=== PATIENT | male | born 1950 | race African-American/Black ===

== ENCOUNTER → 2016-11-25 | Outpatient (CLI) | payer MEDICARE | LOC: RAD 10:31 | PROVIDERS: ATTEND Internal Medicine | DX: D73.81 Neutropenic splenomegaly (principal); R16.2 Hepatomegaly with splenomegaly, not elsewhere classified; Q61.02 Congenital multiple renal cysts; Z94.0 Kidney transplant status | CPT/HCPCS: 76700 ==

== ENCOUNTER → 2016-12-17 | Outpatient (CLI) | payer MEDICARE ==
[2016-12-17 11:17] LABS: POTASSIUM 3.9 mmol/L (3.6-5.0)
[2016-12-17 11:18] LABS: ANION GAP 15 (5-19); BLOOD UREA NITROGEN 41 mg/dL (7-20); CALCIUM 9.7 mg/dL (8.4-10.2); CARBON DIOXIDE 25 mmol/L (22-30); CHLORIDE 105 mmol/L (98-107); GLUCOSE 103 mg/dL (75-110); SODIUM 144.8 mmol/L (137-145)
== END ==
LOC: OD 10:13
PROVIDERS: ATTEND Internal Medicine Nephrology
DX: Z94.0 Kidney transplant status (principal)
CPT/HCPCS: 36415; 80048; 80197

== ENCOUNTER → 2017-02-13 | Outpatient (CLI) | payer MEDICARE ==
[2017-02-13 13:13] LABS: ANION GAP 11 (5-19); BLOOD UREA NITROGEN 36 mg/dL (7-20); CALCIUM 9.3 mg/dL (8.4-10.2); CARBON DIOXIDE 24 mmol/L (22-30); CHLORIDE 106 mmol/L (98-107); CREATININE RESULT 2.26 mg/dL (0.52-1.25); GLUCOSE 72 mg/dL (75-110); POTASSIUM 4.1 mmol/L (3.6-5.0); SODIUM 140.7 mmol/L (137-145)
== END ==
LOC: OD 11:21
PROVIDERS: ATTEND Internal Medicine
DX: Z94.0 Kidney transplant status (principal)
CPT/HCPCS: 36415; 80048; 80197

== ENCOUNTER 2017-05-20 15:57 | Emergency (ER) | payer MEDICARE ==
--- NOTE | 2017-05-20 17:49 | ER Document Report ---
ED Medical Screen (RME) - General Chief Complaint: Fever Stated Complaint: FEVER Time Seen by Provider: 05/20/17 17:47 Mode of Arrival: Ambulatory Information source: Patient Notes: Patient has a history of prostate cancer as well as a renal transplant. Patient was at his doctor's office today for a routine visit to check his INR. At that time the doctor noticed that his temperature is 99 and was concerned and referred him to the emergency department. Patient states he is felt weak the last couple of days but has not felt that he has had a fever. No vomiting or diarrhea. No significant new cough cold or congestion. TRAVEL OUTSIDE OF THE [place] IN LAST 30 DAYS: No - Related Data Allergies/Adverse Reactions: No Known Allergies Allergy (Verified 05/20/17 16:16) Past Medical History - Social History Chew tobacco use (# tins/day): No Frequency of alcohol use: None Drug Abuse: None - Past Medical History Cardiac Medical History: Reports: Hx Hypertension Denies: Hx Heart Attack Pulmonary Medical History: Denies: Hx Asthma, Hx Bronchitis, Hx COPD, Hx Pneumonia Neurological Medical History: Denies: Hx Cerebrovascular Accident, Hx Seizures Renal/ Medical History: Denies: Hx Peritoneal Dialysis Musculoskeltal Medical History: Reports Hx Arthritis - right elbow, left hand Past Surgical History: Reports: Hx Vascular Surgery - fistula - Immunizations Hx Diphtheria, Pertussis, Tetanus Vaccination: Yes - 08/25/11 Physical Exam - Vital signs Vitals: Temp Pulse Resp BP Pulse Ox 99.5 F 95 16 119/89 H 99 05/20/17 16:16 05/20/17 16:16 05/20/17 16:16 05/20/17 16:16 05/20/17 16:16 Course - Vital Signs Vital signs: Temp Pulse Resp BP Pulse Ox 98.3 F 76 16 126/90 H 98 05/20/17 17:45 05/20/17 17:45 05/20/17 17:45 05/20/17 17:45 05/20/17 17:45
[2017-05-20 19:10] LABS: ABSOLUTE LYMPHOCYTES (AUTO) 0.4 10^3/uL (0.5-4.7); ABSOLUTE MONOCYTES (AUTO) 0.5 10^3/uL (0.1-1.4); BASOPHILS % (AUTO) 0.3 % (0-2); EOSINOPHILS % (AUTO) 0.1 % (0-6); HEMATOCRIT 30.7 % (37.9-51.0); HEMOGLOBIN 11.5 g/dL (13.5-17.0); HGB HCT DIFFERENCE 3.8; MEAN CORPUSCULAR HEMOGLOBIN 34.6 pg (27.0-33.4); MEAN CORPUSCULAR HGB CONC 37.6 g/dL (32.0-36.0); MEAN CORPUSCULAR VOLUME 92 fl (80-97); MONOCYTES % (AUTO) 6.8 % (3-13); RED BLOOD COUNT 3.32 10^6/uL (4.35-5.55); RED CELL DISTRIBUTION WIDTH 13.7 % (11.5-14.0); SEGMENTED NEUTROPHILS % (AUTO) 87.8 % (42-78)
[2017-05-20 19:12] LABS: PROTHROMBIN TIME 15.6 SEC (11.4-15.4)
[2017-05-20 19:21] LABS: ALANINE AMINOTRANSFERASE 33 U/L (21-72); ALBUMIN 3.8 g/dL (3.5-5.0); ALKALINE PHOSPHATASE 58 U/L (38-126); ANION GAP 11 (5-19); ASPARTATE AMINO TRANSFERASE 22 U/L (17-59); BILIRUBIN,DIRECT 0.7 mg/dL (0.0-0.4); BILIRUBIN,TOTAL 1.2 mg/dL (0.2-1.3); BLOOD UREA NITROGEN 61 mg/dL (7-20); CALCIUM 9.2 mg/dL (8.4-10.2); CARBON DIOXIDE 22 mmol/L (22-30); CHLORIDE 100 mmol/L (98-107); CREATININE RESULT 2.32 mg/dL (0.52-1.25); GLUCOSE 116 mg/dL (75-110); POTASSIUM 4.2 mmol/L (3.6-5.0); SODIUM 133.4 mmol/L (137-145); TOTAL PROTEIN 7.6 g/dL (6.3-8.2)
--- NOTE | 2017-05-20 19:49 | RADIOLOGY REPORT (SQ) ---
EXAM DESCRIPTION: CHEST PA/LAT COMPLETED DATE/TIME: 05/20/2017 7:07 pm REASON FOR STUDY: hx cancer/weak/fever COMPARISON: July 2010 EXAM PARAMETERS: NUMBER OF VIEWS: two views TECHNIQUE: Digital Frontal and Lateral radiographic views of the chest acquired. RADIATION DOSE: NA LIMITATIONS: none FINDINGS: LUNGS AND PLEURA: No opacities, masses or pneumothorax. No pleural effusion. MEDIASTINUM AND HILAR STRUCTURES: No masses or contour abnormalities. HEART AND VASCULAR STRUCTURES: Cardiac silhouette remains mildly enlarged. BONES: No acute findings. HARDWARE: None in the chest. OTHER: No other significant finding. IMPRESSION: No significant interval change. No acute findings. Other findings as noted above TECHNICAL DOCUMENTATION: JOB ID: [id number] [employer]- All Rights Reserved
--- NOTE | 2017-05-20 20:14 | ER Document Report ---
ED General - General Chief Complaint: Fever Stated Complaint: FEVER Time Seen by Provider: 05/20/17 17:47 Mode of Arrival: Ambulatory Information source: Patient Notes: This is a 67-year-old man with a history of atrial fibrillation (Coumadin), renal transplant (on prednisone and Prograf), recent work-up for possible pancreatic cancer(s/p bx via endoscopy last week), peripheral vascular disease ( right midfoot amputation, left lower extremity bypass). The patient was referred to the emergency room by his bilingual research interviewer (Dr. Gurrola) because of fever and "not looking good". The patient was at the bilingual research interviewer for a regular visit (followed for anticoagulation) but does state he has been tired and sluggish for the past week. He denies any chest pain or shortness of breath , he states he has had intermittent abdominal pain. He denies N/V/D or dysuria. TRAVEL OUTSIDE OF THE [place] IN LAST 30 DAYS: No - HPI Onset: Just prior to arrival Onset/Duration: Gradual Quality of pain: Other - He states he has had intermittent abdominal pain Severity: Mild Pain Level: 1 Associated symptoms: Chills, Fever. denies: Shortness of breath Exacerbated by: Denies Relieved by: Denies Similar symptoms previously: Yes Recently seen / treated by doctor: Yes - Related Data Allergies/Adverse Reactions: No Known Allergies Allergy (Verified 05/20/17 16:16) Past Medical History - General Information source: Patient - Social History Smoking Status: Former Smoker Cigarette use (# per day): No Chew tobacco use (# tins/day): No Frequency of alcohol use: None Drug Abuse: None Lives with: Spouse/Significant other Family History: Reviewed & Not Pertinent Patient has suicidal ideation: No Patient has homicidal ideation: No - Past Medical History Cardiac Medical History: Reports: Hx Hypertension Denies: Hx Heart Attack Pulmonary Medical History: Denies: Hx Asthma, Hx Bronchitis, Hx COPD, Hx Pneumonia Neurological Medical History: Denies: Hx Cerebrovascular Accident, Hx Seizures Renal/ Medical History: Denies: Hx Peritoneal Dialysis Musculoskeltal Medical History: Reports Hx Arthritis - right elbow, left hand Past Surgical History: Reports: Hx Vascular Surgery - fistula, Other - Recent ERCP with pancreatic biopsy (last week) - Immunizations Hx Diphtheria, Pertussis, Tetanus Vaccination: Yes - 08/25/11 Hx Pneumococcal Vaccination: 08/25/11 Review of Systems - Review of Systems Constitutional: Chills, Fever EENT: No symptoms reported Cardiovascular: No symptoms reported Respiratory: No symptoms reported Gastrointestinal: See HPI Genitourinary: No symptoms reported Male Genitourinary: No symptoms reported Musculoskeletal: No symptoms reported Skin: No symptoms reported Hematologic/Lymphatic: No symptoms reported Neurological/Psychological: Weakness Physical Exam - Vital signs Vitals: Temp Pulse Resp BP Pulse Ox 99.5 F 95 16 119/89 H 99 05/20/17 16:16 05/20/17 16:16 05/20/17 16:16 05/20/17 16:16 05/20/17 16:16 Notes: Physical exam: GENERAL: 67-year-old man, alert and oriented 3, no acute distress HEAD: Atraumatic, normocephalic. EYES: Pupils equal round and reactive to light, extraocular movements intact, sclera anicteric, conjunctiva are normal. ENT: TMs normal, nares patent, oropharynx clear without exudates. Moist mucous membranes. NECK: Normal range of motion, supple without obvious mass or JVD. LUNGS: Breath sounds clear to auscultation bilaterally and equal. No wheezes rales or rhonchi. HEART: Regular rate and rhythm without murmurs, rubs or gallops. ABDOMEN: Soft, normoactive bowel sounds. He does have ecchymoses to the left lower quadrant which is where his been getting Lovenox shots. He has no tenderness over the right lower quadrant which is where his renal transplant lies. Perineum: Skin clear EXTREMITIES: Normal range of motion, no pitting or edema. No clubbing or cyanosis. NEUROLOGICAL: Cranial nerves II through XII grossly intact. Normal speech, moving all extremities. PSYCH: Normal mood, normal affect. SKIN: Warm, Dry, normal turgor, no rashes or lesions noted. Course - Re-evaluation Re-evalutation: 05/21/17 02:10 This is a 67-year-old man with a history of a renal transplant, on immunosuppressants, presenting with generalized weakness, fatigue and low-grade fever. Patient is found to have atrial fibrillation with a rapid ventricular rate (in the 130 range). He does have a history of atrial fibrillation for which she receives chronic anticoagulation. He does have a history of a recent ERCP with pancreatic biopsy for a pancreatic mass (biopsy results pending). The patient's white count today is 8K and records indicate that his baseline white count is approximately 4K. He does have an left shift with approximately 90% neutrophils. CT of the abdomen shows significant inflammation in the mid abdomen fat associated with the pancreas. The patient has been treated with IV fluids, IV antibiotics (ceftriaxone) and he has been started on an IV Diltiazem drip to control his rate. I have discussed the case with Dr. Kirby who is the hospitalist at this hospital and he has recommended transfer to [facility] because of lack of GI services, transplant services, etc. I have discussed the case with Dr. Holman at [facility] surgery who recommended transferring to the hospitalist service with the surgical subspecialties in consultation. 05/21/17 02:[address] Martinez of the Hospitalist service at [facility] who has accepted patient in transfer. 05/21/17 02:42 Currently the patient's heart rate is approximately 110. We are titrating the dill trip to 7 mg an hour. The patient continues to receive fluids at 200 and hour. He does have a Gooden and is draining urine. I am switching the antibiotic to renal dose of Zosyn (better abdominal coverage). - Vital Signs Vital signs: Temp Pulse Resp BP Pulse Ox 98.4 F 76 18 147/98 H 97 05/21/17 00:50 05/20/17 17:45 05/21/17 02:01 05/21/17 02:01 05/21/17 02:01 - Laboratory Result Diagrams: 05/20/17 18:45 05/20/17 18:45 Laboratory results interpreted by me: 05/20/17 05/20/17 05/20/17 18:45 18:45 18:45 RBC 3.32 L Hgb 11.5 L Hct 30.7 L MCH 34.6 H MCHC 37.6 H Plt Count 137 L Seg Neutrophils % 87.8 H Lymphocytes % 5.0 L Absolute Lymphocytes 0.4 L PT 15.6 H VBG pH Sodium 133.4 L BUN 61 H Creatinine 2.32 H Est GFR ( Amer) 34 L Est GFR (Non-Af Amer) 28 L Glucose 116 H Magnesium Direct Bilirubin 0.7 H Urine Protein Urine Ketones Urine Blood 05/20/17 05/20/1717 18:45 20:08 23:02 RBC Hgb Hct MCH MCHC Plt Count Seg Neutrophils % Lymphocytes % Absolute Lymphocytes PT VBG pH 7.29 L Sodium BUN Creatinine Est GFR ( Amer) Est GFR (Non-Af Amer) Glucose Magnesium 3.0 H Direct Bilirubin Urine Protein 30 H Urine Ketones TRACE H Urine Blood SMALL H - Diagnostic Test Radiology reviewed: Image reviewed, Reports reviewed - CT of the abdomen shows a 3.1 cm ovoid mass associated with the pancreatic body with severe extensive inflammation of the mid abdominal fat associated with the pancreas. I have reviewed the CT report and discussed the findings with Dr. Nava of radiology. - EKG Interpretation by Me Rate: Tachycardia Rhythm: A.Fib - EKG shows Critical Care Note - Critical Care Note Total time excluding time spent on procedures (mins): 120 Discharge - Discharge Clinical Impression: Fever, Atrial fibrillation with rapid ventricul, Pancreatitis Condition: Serious Disposition: [facility] Referrals: CANDELARIO AMADO MD [Primary Care Provider] - Follow up as needed
[2017-05-20 20:33] LABS: VENOUS BLOOD BASE EXCESS -4.3 mmol/L; VENOUS BLOOD HCO3 22.5 mmol/L (20-32); VENOUS BLOOD PCO2 47.8 mmHg (35-63); VENOUS BLOOD PH 7.29 (7.30-7.42)
[2017-05-20] MEDS: NORMAL SALINE 500 ML IV PRN ×2 (21:14→21:40)
--- NOTE | 2017-05-20 21:15 | EKG REPORT ---
SEVERITY:- ABNORMAL ECG - ATRIAL FIBRILLATION, V-RATE 77-181 LEFT ANTERIOR FASCICULAR BLOCK CONSIDER ANTEROSEPTAL INFARCT REPOL ABNRM SUGGESTS ISCHEMIA, LATERAL LEADS BORDERLINE PROLONGED QT INTERVAL : Confirmed by: Miesha Patel MD 20-May-2017 21:15:01
[2017-05-20] MEDS ORDERED: NORMAL SALINE 1000 ML 1,000 ML IV PRN (21:47)
[2017-05-20] MEDS ORDERED: DILTIAZEM HCL INJ 25 MG/5 ML VIAL IV ONE (23:04)
[2017-05-20 23:39] LABS: AMORPHOUS SEDIMENT,URINE TRACE /HPF; APPEARANCE,URINE CLOUDY; BILIRUBIN,URINE NEGATIVE (NEGATIVE); GLUCOSE, URINE NEGATIVE (NEGATIVE); KETONES,URINE TRACE mg/dL (NEGATIVE); LEUKOCYTE ESTERASE,URINE NEGATIVE (NEGATIVE); NITRITE,URINE NEGATIVE (NEGATIVE); PROTEIN,URINE 30 mg/dL (NEGATIVE); URINE SPECIFIC GRAVITY 1.014; UROBILINOGEN,URINE NEGATIVE mg/dL (<2.0)
[2017-05-20] MEDS ORDERED: CEFTRIAXONE 1 GM/D5W RTU 1 GM/50 ML RTUPB IV ONE (23:42)
[2017-05-20] MEDS: NORMAL SALINE 1000 ML 1,000 ML IV PRN (23:44)
[2017-05-20] MEDS ORDERED: CARVEDILOL 12.5 MG TABLET PO ONE (23:45)
[2017-05-20] MEDS ORDERED: DILTIAZEM HCL/D5W 125 MG/125 ML RTUINJ IV PRN (23:57)
--- NOTE | 2017-05-21 01:06 | RADIOLOGY REPORT (SQ) ---
EXAM DESCRIPTION: CT ABD/PELVIS NO ORAL OR IV COMPLETED DATE/TIME: 05/20/2017 11:48 pm REASON FOR STUDY: h/o renal transplant, rlq tender COMPARISON: Ultrasound, 11/25/2016. TECHNIQUE: CT scan of the abdomen and pelvis performed without intravenous or oral contrast. Images reviewed with lung, soft tissue, and bone windows. Reconstructed coronal and sagittal MPR images revi ewed. All images stored on PACS. All CT scanners at this facility use dose modulation, iterative reconstruction, and/or weight based d osing when appropriate to reduce radiation dose to as low as reasonably achievable (ALARA). [facility]: Dose Right [facility]: CareDose [facility]: Dose Right [facility]: Teradose 4D [facility]: [employer] RADIATION DOSE: Up-to-date CT equipment and radiation dose reduction techniques were employed. CTDIv ol: 10.7 mGy. DLP: 645 mGy-cm.mGy. LIMITATIONS: None. FINDINGS: LOWER CHEST: No significant findings. No nodules or infiltrates. Moderate coronary arteri al calcification. Minimal pericardial fluid. Mild cardiac enlargement. NON-CONTRASTED LIVER, SPLEEN, ADRENALS: Evaluation limited by lack of IV contrast. No identified sign ificant masses. Punctate splenic calcified granulomata. PANCREAS: 3.1 cm ovoid mass appears associated with the pancreatic body with CT density of 65 Hounsfi eld units, image 48 of series 3. Indistinct margins of the pancreatic head and moderate to severe me senteric fat inflammation of the mid abdomen and upper abdomen. GALLBLADDER: No identified stones by CT criteria. No inflammatory changes to suggest cholecystitis. RIGHT KIDNEY AND URETER: Severe atrophy with cystic changes, likely benign. Right paracentral pelvic kidney contains a likely benign 1.4 cm cyst not definitively characterize. LEFT KIDNEY AND URETER: Severe atrophy with like clear benign cystic changes not definitively charact erized. AORTA AND RETROPERITONEUM: No aneurysm. No retroperitoneal masses or adenopathy. Atherosclerosis. BOWEL AND PERITONEAL CAVITY: No obvious masses or inflammatory changes. No free fluid. APPENDIX: Normal. PELVIS, BLADDER, AND ABDOMINAL WALL:2.7 cm umbilical herniation of small bowel without significant ob struction. Gooden catheter appears adequate. BONES: No significant findings. OTHER: No other significant finding. IMPRESSION: 1. A 3.1 cm ovoid mass associated with the pancreatic body and severe extensive inflam matory appearance of mid abdominal fat associated with the pancreas; differential diagnosis includes trauma/ hematoma, pancreatitis, and neoplasm. General surgery consultation advised. Consider dynami c contrast CTA/MR surveillance of the abdomen. 2. Umbilical small bowel herniation. 3. Right pelvic transplant kidney. COMMENT: This report was called to JAKE HERNANDEZ MD at00:58 on 05/21/2017. Quality ID # [id number]: Final reports with documentation of one or more dose reduction techniques (e.g., Au tomated exposure control, adjustment of the mA and/or kV according to patient size, use of iterative reconstruction technique) TECHNICAL DOCUMENTATION: JOB ID: [id number] [employer]- All Rights Reserved
[2017-05-21] MEDS: PIPERACILLIN/TAZOBACTAM 2.25 GM VIAL IV SCH ×2 (03:53→10:08)
[2017-05-21] MEDS: NORMAL SALINE 1000 ML 1,000 ML IV PRN (04:49)
[2017-05-21 11:15] VITALS: BP 152/107
== END 2017-05-21 11:22 | disposition short-term general hospital (02) ==
LOC: ER 15:57
DX: R50.9 Fever, unspecified (principal); K85.90 Acute pancreatitis without necrosis or infection, unspecified; I48.91 Unspecified atrial fibrillation; R53.1 Weakness; I10 Essential (primary) hypertension; Z79.02 Long term (current) use of antithrombotics/antiplatelets; Z94.0 Kidney transplant status; Z89.431 Acquired absence of right foot; Z87.891 Personal history of nicotine dependence; Z79.899 Other long term (current) drug therapy
CPT/HCPCS: 93005; 96376; 99291; 99292; 96361; 96365; 96366; 96367; 36415; 87040; 87086; 83690; 83735; 85025; 85610; 80053; 81001; 84484; 82803; 83605; 71020; 74176; 93010; J3490 ×2; J7030 ×2; J7040; A9270; J0696; J2543

== ENCOUNTER → 2017-07-22 | Outpatient (CLI) | payer MEDICARE ==
[2017-07-22 12:55] LABS: BLOOD UREA NITROGEN 40 mg/dL (7-20); CREATININE RESULT 2.37 mg/dL (0.52-1.25)
[2017-07-22 13:22] LABS: ABSOLUTE EOSINOPHILS # (AUTO) 0.2 10^3/uL (0.0-0.6); ABSOLUTE LYMPHOCYTES (AUTO) 1.3 10^3/uL (0.5-4.7); ABSOLUTE MONOCYTES (AUTO) 0.5 10^3/uL (0.1-1.4); BASOPHILS % (AUTO) 0.5 % (0-2); HEMOGLOBIN 10.7 g/dL (13.5-17.0)
[2017-07-22 13:24] LABS: ABSOLUTE NEUT (AUTO) 3.8 10^3/uL (1.7-8.2); WHITE BLOOD COUNT 5.8 10^3/uL (4.0-10.5)
[2017-07-22 13:48] LABS: EOSINOPHILS % (AUTO) 2.8 % (0-6); HEMATOCRIT 29.9 % (37.9-51.0); HGB HCT DIFFERENCE 2.2; LYMPHOCYTES % (AUTO) 22.3 % (13-45); MONOCYTES % (AUTO) 8.3 % (3-13); RED CELL DISTRIBUTION WIDTH 14.5 % (11.5-14.0); SEGMENTED NEUTROPHILS % (AUTO) 66.1 % (42-78)
[2017-07-22 13:50] LABS: MEAN CORPUSCULAR HEMOGLOBIN 33.1 pg (27.0-33.4); MEAN CORPUSCULAR HGB CONC 35.9 g/dL (32.0-36.0); MEAN CORPUSCULAR VOLUME 92 fl (80-97); RED BLOOD COUNT 3.24 10^6/uL (4.35-5.55)
== END ==
LOC: LAB 12:29
PROVIDERS: ATTEND Radiology Radiation Oncology
DX: C61 Malignant neoplasm of prostate (principal); R97.0 Elevated carcinoembryonic antigen [CEA]
CPT/HCPCS: 36415; 82565; 84153; 84520; 85025

== ENCOUNTER → 2017-08-11 | Outpatient (CLI) | payer MEDICARE ==
[2017-08-11 12:34] LABS: BLOOD UREA NITROGEN 36 mg/dL (7-20); CREATININE RESULT 2.18 mg/dL (0.52-1.25)
== END ==
LOC: LAB 11:35
PROVIDERS: ATTEND Radiology Radiation Oncology
DX: C61 Malignant neoplasm of prostate (principal)
CPT/HCPCS: 36415; 82565; 84520

== ENCOUNTER → 2018-01-06 | Outpatient (CLI) | payer MEDICARE ==
--- NOTE | 2018-01-06 18:08 | XCELERA REPORT ---
[address] [address] Transthoracic Echocardiogram Report Name: MONICA NAVAS Age: 67 yrs Gender: Male : 1950 Patient Status: Outpatient Patient Location: Study Date: 01/06/2018 09:18 AM Procedure: A two-dimensional transthoracic echocardiogram with color flow and Doppler was performed. Study Quality: Fair. Reason For Study: CHRONIC A FIB History: CHRONIC A FIB. Ordering Physician: MIESHA RUIZ Performed By: Norma Meléndez Interpretation Summary The left ventricle is normal in size. There is severe concentric left ventricular hypertrophy. LV EF is 60% LV diastolic function could not be adequately assessed due to atrial fibrilation. The left ventricular wall motion is normal. There is no thrombus. The left atrial size is normal. The interatrial septum is intact with no evidence for an atrial septal defect. There is no mitral valve stenosis. There is no mitral regurgitation noted. There is no aortic valve stenosis There is no LVOT obstruction. There is a mild amount of aortic regurgitation There is no tricuspid stenosis. There is a mild amount of tricuspid regurgitation Right ventricular systolic pressure is normal. RVSP is 30 mm of Hg,with RA mean of 10. Minimal pericardial effusion. There are no echocardiographic or Doppler indications for cardiac tamponade MMode/2D Measurements & Calculations RVDd: 2.7 cm LVIDd: 4.0 cm FS: 37.8 % Ao root diam: 3.2 cm IVSd: 2.1 cm LVIDs: 2.5 cm EDV(Teich): 68.8 ml Ao root area: 8.1 cm2 LVPWd: 2.4 cm ESV(Teich): 21.7 ml LA dimension: 3.3 cm EF(Teich): 68.5 % LVOT diam: 2.1 cm LVOT area: 3.5 cm2 Doppler Measurements & Calculations MV E max camila: MV P1/2t max camila: Ao V2 max: LV V1 max P.5 cm/sec 124.9 cm/sec 79.4 cm/sec 2.1 mmHg MV P1/2t: 48.5 msec Ao max PG: LV V1 max: 2.5 mmHg 73.1 cm/sec MVA(P1/2t): 4.5 cm2 ROMY(V,D): MV dec slope: 753.9 cm/sec2 3.3 cm2 MV dec time: 0.16 sec PA V2 max: TR max camila: 63.2 cm/sec 223.3 cm/sec PA max P.6 mmHg TR max P.9 mmHg Left Ventricle The left ventricle is normal in size. There is severe concentric left ventricular hypertrophy. LV EF is 60%. Left ventricular systolic function is normal. LV diastolic function could not be adequately assessed due to atrial fibrilation. The left ventricular wall motion is normal. There is no thrombus. There is no ventricular septal defect visualized. Right Ventricle The right ventricle is normal in size and function. Atria The right atrium is normal. The left atrial size is normal. The interatrial septum is intact with no evidence for an atrial septal defect. Mitral Valve There is no evidence of mitral valve prolapse. There is no vegetation seen on the mitral valve. There is no mitral valve stenosis. There is no mitral regurgitation noted. Aortic Valve There is no aortic valvular vegetation. There is no aortic valve stenosis. There is no LVOT obstruction. There is a mild amount of aortic regurgitation. Tricuspid Valve There is no tricuspid stenosis. There is a mild amount of tricuspid regurgitation. Right ventricular systolic pressure is normal. RVSP is 30 mm of Hg,with RA mean of 10. Pulmonic Valve There is no pulmonic valvular stenosis. There is no pulmonic valvular regurgitation. Great Vessels The aortic root is normal size. Effusions Minimal pericardial effusion. There are no echocardiographic or Doppler indications for cardiac tamponade. : MIESHA RUIZ > Miesha Riuz
== END ==
LOC: SP 08:49
PROVIDERS: ATTEND Specialist
DX: I48.2 Chronic atrial fibrillation (principal)
CPT/HCPCS: 93306

== ENCOUNTER → 2018-02-11 | Outpatient (CLI) | payer MEDICARE | LOC: OD 11:03 | PROVIDERS: ATTEND Radiology Radiation Oncology | DX: C61 Malignant neoplasm of prostate (principal); R97.20 Elevated prostate specific antigen [PSA] | CPT/HCPCS: 36415; 84153 ==